=== PATIENT | female | born 1990 | race Caucasian/White ===

== ENCOUNTER 2017-03-15 12:21 | Day surgery (SDC) | payer OTHER ==
[~2017-03-15 12:21] MED LIST: Buffered Lidocaine 0.9% SYRIN* 5 ML/SYR SYRINGE INTRADERM ONE; Dexamethasone IV* 4 MG/ML 1 ML (4 MG) IV SLOW PU ONE; Famotidine IV* 10 MG/ML 2 ML (20 mg) IV ONE
[2017-03-15] MEDS ORDERED: ceFAZolin 2 GM PREMIX (*) 50 ML IVPB ONE (12:52)
[2017-03-15] MEDS ORDERED: Famotidine IV* 10 MG/ML 2 ML (20 mg) ONE (12:52)
[2017-03-15] MEDS ORDERED: Buffered Lidocaine 0.9% SYRIN* 5 ML/SYR SYRINGE ONE (12:52)
[2017-03-15] MEDS ORDERED: Dexamethasone IV* 4 MG/ML 1 ML (4 MG) ONE (12:52)
[2017-03-15] MEDS ORDERED: Midazolam* 1 MG/ML 5 ML VIAL (5 MG) ONE (13:59)
[2017-03-15] MEDS ORDERED: EPINEPHrine AMP 1 MG/ML ONE (14:29)
[2017-03-15] MEDS ORDERED: Atracurium* 10 MG/ML 10 ML VIAL ONE (14:31)
[2017-03-15] MEDS ORDERED: fentaNYL* 50 MCG/ML 5 ML VIAL (250 MCG VIAL) ONE (14:31)
[2017-03-15] MEDS ORDERED: Ketorolac INJ* 30 MG/ML 1 ML VIAL ONE (14:43)
[2017-03-15] MEDS ORDERED: Lidocaine 2% PF * 5 ML VIAL ONE (14:43)
[2017-03-15] MEDS ORDERED: Propofol* 10 MG/ML 20 ML BTL IV PUSH ONE (14:43)
[2017-03-15] MEDS ORDERED: Ondansetron INJ* 2 MG/ML VIAL ONE (14:43)
[2017-03-15] MEDS ORDERED: Lidocaine 1.5% EPI 1:200,000* 30 ML SDV ONE (14:45)
[2017-03-15] MEDS ORDERED: fentaNYL* 50 MCG/ML 2 ML VIAL (100 MCG VIAL) ONE ×3 (15:05→16:02)
[2017-03-15] MEDS ORDERED: DiMENhydriNATE IV* 50 MG/ML VIAL IV PUSH PRN (15:11)
[2017-03-15] MEDS ORDERED: fentaNYL* 50 MCG/ML 2 ML VIAL (100 MCG VIAL) IV PRN (15:11)
[2017-03-15] MEDS ORDERED: Ondansetron INJ* 2 MG/ML VIAL IV PRN (15:11)
[2017-03-15] MEDS ORDERED: HYDROmorphone* 1 MG/ML 1 ML SYR IV PRN (15:11)
[2017-03-15] MEDS ORDERED: HYDROmorphone* 1 MG/ML 1 ML SYR ONE (16:02)
[2017-03-15] MEDS ORDERED: DiMENhydriNATE IV* 50 MG/ML VIAL ONE (16:06)
[2017-03-15 16:58] VITALS: BP 123/66
--- NOTE | 2017-03-16 06:21 | OP ---
DATE OF OPERATION: 03/15/17 [facility] DATE OF : 89 SURGEON: Joey Denney MD SCRAP STRIPPER HAND: ROHIT Yang. A physician clinical lab assistant was required during the length of the procedure for positioning, retraction, manipulation and instrumentation. ANESTHESIOLOGIST: Dr. Cr. ANESTHESIA: General anesthesia. PRE-OP DIAGNOSES: 1. Left knee lateral meniscus tear. 2. Left knee discoid variant lateral meniscus. POST-OP DIAGNOSES: 1. Left knee lateral meniscus tear. 2. Left knee discoid variant lateral meniscus. OPERATIVE PROCEDURE: Left knee arthroscopic partial lateral meniscectomy. ANTIBIOSIS: 2 g Ancef IV. IV FLUIDS: 900 cc IV crystalloid. COMPLICATIONS: None. TOURNIQUET TIME: 40 minutes approximately. ESTIMATED BLOOD LOSS: Minimal. SPECIMEN: None. IMPLANTS: None. INDICATIONS FOR PROCEDURE: The patient is a 26-year-old woman who injured her left knee on 11/26/16, over 3 months ago, at work when she heard a pop. The patient has had left knee pain since then and has had some catching and locking as well as swelling. MRI demonstrated a discoid variant lateral meniscus and a radial partial thickness tear. There was some question to my eyes also of some degeneration versus a tear about the meniscocapsular junction of the body as well as possibly posterior horn lateral meniscus. The patient had a long complicated history regarding the contralateral right knee where she had 3 partial lateral meniscectomies ending in a fourth operation , a meniscal transplant. Therefore, at first, the patient was very wary of the idea of having an operation even though she felt it was needed. As the patient failed nonoperative management and became very interested in surgery, we spoke about it and I told her I would treat the tear and remove as little as possible other meniscus. I booked the case as a saucerization of the discoid variant lateral meniscus, but the patient I had discussed only minimal reshaping of the meniscus, so that she would maintain as much meniscal volume as possible. We spoke preoperatively about benefits, risks and potential complications of surgery. Risks of potential complications include bleeding, infection, nerve or blood vessel injury, blood clot, knee arthritis, knee pain, meniscus retear. The patient opted for surgical management. DESCRIPTION OF PROCEDURE: Preoperative written consent was obtained. Operative extremity was marked in preop holding. The patient was taken back to the operating room, placed supine on the operating room table. The left proximal thigh was placed a tourniquet about it. The distal thigh was placed in a circumferential thigh frost. The left lower extremity below the thigh frost was prepped with ChloraPrep and was draped. Surgical time-out was performed. The foot of the bed was dropped and the table was elevated. Lateral or rather anterolateral knee arthroscopy portal was established using standard technique. I entered the knee joint and started diagnostic arthroscope. No patellofemoral compartment articular cartilage injury was noted. I then moved to the medial compartment. No articular cartilage or meniscus injury was noted. I moved to the intercondylar notch. ACL and PCL were intact. I then moved to the lateral compartment. There was clearly a radial tear at least partial thickness of the body of the lateral meniscus. The meniscus tissue from anterior horn through to posterior horn did appear a thicker than normal consistent with a discoid variant lateral meniscus. I established anteromedial portal with the knee in a varus stressed position. I entered a shaver and debrided the ligamentum mucosum and some synovitis anteriorly about the knee. I then debrided the lateral meniscus tear back to a stable rim of tissue using arthroscopic biters and the arthroscopic shaver. I worked through both the anteromedial and the anterolateral portal. Part of the way through my debridement, I viewed a straight on from the anteromedial portal which provided an excellent view of the tear. As I debrided back the radial partial thickness tear, there was still clearly some healthy meniscal tissue or rather intact meniscal tissue present about the body. However, there was a horizontal tear present. I partially debrided this, but there was still some frayed tissue remaining. I took only the smallest amount of tissue from the anterior horn and posterior horn just smoothing the meniscus out to prevent any future tears or instability. I probed the meniscus throughout from anterior to posterior. When I pulled the posterior horn, it did excurse anteriorly, but there was no clear defect about the inferior or superior aspect of the meniscus or meniscocapsular junction. I was satisfied that I debrided the meniscus back to a stable rim not overly aggressively shaving any meniscus. I then returned to the patellofemoral compartment. There was some fat excursing into that compartment, I debrided some fat. I removed the fluid and instruments from left knee. Closed 2 skin incision portal sites with a [id number] stitches using nylon 4-0 suture. Injected 10 cc of 1.5% lidocaine with epinephrine into the subcutaneous tissue about each skin incision. Xeroform, 4x4s, ABDs, sterile Webril, Estrada bandage from foot to proximal thigh. Ice cooling unit. The patient was awakened and extubated and brought to PACU. The patient will follow up with me in 10 to 14 days postoperatively. She will do physical therapy for the first time in the next 2 days. Crutches as needed. Percocet for pain control. Aspirin x2 weeks. [id number]/CPS #: [id number] MTDD
== END 2017-03-15 16:58 | disposition home or self-care (01) ==
LOC: OR 12:21
PROVIDERS: ATTEND Orthopaedic Surgery
DX: S83.282A Other tear of lateral meniscus, current injury, left knee, initial encounter (principal); W18.39XA Other fall on same level, initial encounter; Y92.9 Unspecified place or not applicable; Q68.6 Discoid meniscus; F17.200 Nicotine dependence, unspecified, uncomplicated
CPT/HCPCS: 81025; J0171; J0690; J1100; J1170; J1240; J1885; J2250; J2405; J2704; J3010

== ENCOUNTER 2017-08-28 08:35 | Emergency (ER) | payer BC, OTHER ==
--- NOTE | 2017-08-28 09:40 | RAD ---
HISTORY: Cough COMPARISONS: February 01, 2015 VIEWS: 4: Frontal dual-energy and lateral views of the chest. FINDINGS: CARDIOMEDIASTINAL SILHOUETTE: The cardiomediastinal silhouette is normal. KAT: The kat are normal. PLEURA: The costophrenic angles are sharp. No pleural abnormalities are noted. LUNG PARENCHYMA: The lungs are clear. ABDOMEN: The upper abdomen is clear. There is no subphrenic gas. BONES AND SOFT TISSUES: No bone or soft tissue abnormalities are noted. OTHER: None. IMPRESSION: NO ACTIVE CARDIOPULMONARY DISEASE.
[2017-08-28 09:41] VITALS: BP 120/64
--- NOTE | 2017-08-28 18:57 | ED ---
Torito Newton Angela, scribed for Harish Garrison MD on 08/28/17 at 0855 . Respiratory - HPI Summary HPI Summary: This pt is a 27 y/o female presenting to [facility] c/o cough and SOB for 3 days now , worsening today. She describes non-productive cough. Pt notes her chest feels heavy secondary to cough. She additionally reports sore throat secondary to cough and runny nose. Pt denies fever, chills. Denies PMHx. - History of Current Complaint Chief Complaint: EDShortnessOfBreath Stated Complaint: SHORT OF BREATH Time Seen by Provider: 08/28/17 08:39 Hx Obtained From: Patient Onset/Duration: Lasting Days, Still Present Current Severity: Moderate Pain Intensity: 5 Character: Cough (Nonproductive) Aggravating Factor(s): Nothing Alleviating Factor(s): Nothing Associated Signs and Symptoms: SOB, Chest Pain with Cough, Nasal Congestion - Allergy/Home Medications Allergies/Adverse Reactions: Allergies Allergy/AdvReac Type Severity Reaction Status Date / Time hydrocodone Allergy Unknown Itching Verified 08/28/17 10:28 PMH/Surg Hx/FS Hx/Imm Hx Endocrine/Hematology History: Denies: Hx Diabetes, Hx Thyroid Disease Cardiovascular History: Denies: Hx Hypertension Respiratory History: Denies: Hx Asthma, Hx Chronic Obstructive Pulmonary Disease (COPD) GI History: Denies: Hx Ulcer History: Denies: Hx Renal Disease Musculoskeletal History: Reports: Hx Arthritis - RIGHT KNEE Sensory History: Reports: Hx Contacts or Glasses - GLASSES Denies: Hx Hearing Aid Opthamlomology History: Reports: Hx Contacts or Glasses - GLASSES Neurological History: Reports: Hx Migraine - OCCASIONALLY- TREATS WITH REST AND IBUPROFEN Psychiatric History: Reports: Hx Anxiety - IN THE PAST, Hx Depression - IN THE PAST - Surgical History Surgery Procedure, Year, and Place: 2006,2008,2010, 2012 RIGHT KNEE SURGERY, [facility] LEFT WRIST GANGLION CYST REMOV[place] [facility] Hx Anesthesia Reactions: No - Immunization History Date of Tetanus Vaccine: Unk Date of Influenza Vaccine: None Infectious Disease History: No Infectious Disease History: Denies: Hx Clostridium Difficile, Hx Hepatitis, Hx Human Immunodeficiency Virus (HIV), Hx of Known/Suspected MRSA, Hx Shingles, Hx Tuberculosis, Hx Known/ Suspected VRE, Hx Known/Suspected VRSA, History Other Infectious Disease, Traveled Outside the [place] in Last 30 Days - Family History Known Family History: Positive: Hypertension - Social History Alcohol Use: Occasionally Substance Use Type: Reports: None Smoking Status (MU): Light Every Day Tobacco Smoker Type: Cigarettes Amount Used/How Often: 1/2 PPD X 10 YEARS Length of Time of Smoking/Using Tobacco: 10+ years Have You Smoked in the Last Year: Yes Review of Systems Negative: Fever, Chills Positive: Sore Throat, Nasal Discharge Positive: Chest Pain - secondary to cough Positive: Shortness Of Breath, Cough Neurological: Negative All Other Systems Reviewed And Are Negative: Yes Physical Exam - Summary Physical Exam Summary: VITAL SIGNS: Reviewed. GENERAL: Patient is a well-developed and nourished female who is lying comfortable in the stretcher. Patient is not in any acute respiratory distress. HEAD AND FACE: No signs of trauma. No ecchymosis, hematomas or skull depressions. No sinus tenderness. EYES: PERRLA, EOMI x 2, No injected conjunctiva, no nystagmus. EARS: Hearing grossly intact. Ear canals and tympanic membranes are within normal limits. MOUTH: Oropharynx within normal limits. NECK: Supple, trachea is midline, no adenopathy, no JVD, no carotid bruit, no c- spine tenderness, neck with full ROM. CHEST: Symmetric, no tenderness at palpation LUNGS: Clear to auscultation bilaterally. No wheezing or crackles. CVS: Regular rate and rhythm, S1 and S2 present, no murmurs or gallops appreciated. ABDOMEN: Soft, non-tender. No signs of distention. No rebound no guarding, and no masses palpated. Bowel sounds are normal. EXTREMITIES: FROM in all major joints, no edema, no cyanosis or clubbing. NEURO: Alert and oriented x 3. No acute neurological deficits. Speech is normal and follows commands. SKIN: Dry and warm Triage Information Reviewed: Yes Vital Signs On Initial Exam: Initial Vitals Temp Pulse Resp BP Pulse Ox 96 F 92 16 103/76 100 08/28/17 08:38 08/28/17 08:38 18 08:38 08/28/17 08:38 08/28/17 08:38 Vital Signs Reviewed: Yes Diagnostics - Vital Signs Vital Signs Temp Pulse Resp BP Pulse Ox 08/28/17 08:38 96 F 92 16 103/76 100 - Laboratory Lab Results: Lab Results 08/28/17 08/28/17 Range/Units 09:11 09:12 Influenza A (Rapid) Negative (Negative) Influenza B (Rapid) Negative (Negative) Group A Strep Rapid Negative (Negative) Lab Statement: Any lab studies that have been ordered have been reviewed, and results considered in the medical decision making process. - Radiology Chest XR Xray Interpretation: No Acute Changes - IMPRESSION: No active cardiopulmonary disease. Dr. Garrison has reviewed this radiology report. Radiology Interpretation Completed By: Radiologist Disposition - Course Assessment/Plan: This pt is a 27 y/o female presenting to [facility] c/o cough and SOB for 3 days now, worsening today. She describes non-productive cough. Pt notes her chest feels heavy secondary to cough. She additionally reports sore throat secondary to cough and runny nose. Pt denies fever, chills. Denies PMHx. Influenza A and B is negative. Rapid strep is negative. Chest XR: No active cardiopulmonary disease. I believe the pt has a viral upper respiratory infection. She was given prescriptions for Tessalon Perles and Mucinex. Pt will be discharged home with follow up from her PCP. - Diagnoses Provider Diagnoses: Cough, Upper respiratory infection Discharge - Discharge Plan Condition: Stable Disposition: HOME Prescriptions: Benzonatate CAP* [Tessalon 100 MG CAP*] 100 mg PO TID #9 cap guaiFENesin ER TAB [Mucinex*] 600 mg PO BID #12 tab.er Patient Education Materials: Upper Respiratory Infection (ED), Acute Cough (ED) Referrals: David NEVES,Yair Crowley [Primary Care Provider] - 3 Days Additional Instructions: Please follow up with your primary care provider. RETURN TO THE ED FOR ANY WORSENING SYMPTOMS. The documentation as recorded by the Torito valdovinos Angela accurately reflects the service I personally performed and the decisions made by me, Harish Garrison MD.
== END 2017-08-28 09:40 | disposition home or self-care (01) ==
LOC: ED 08:35
DX: J06.9 Acute upper respiratory infection, unspecified (principal)
CPT/HCPCS: 71046; 87502; 87651; 99282